=== PATIENT | female | born 1950 | race Caucasian/White ===

== ENCOUNTER 2016-08-05 11:47 | Emergency (ER) | payer MEDICARE, OTHER ==
[~2016-08-05] VITALS: Ht 157.5 cm; Wt 86.8 kg
[~2016-08-05 11:47] MED LIST: ACTO5TAB; AMOX875 PO; PRED20 PO; SIMV5TAB32 PO; [UNRECOGNIZED DRUG - CODE] PO
[2016-08-05 11:50] VITALS: BP 155/79; PULSE 67; RESP 16; TEMP 98.1; O2SAT 97
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
--- NOTE | 2016-08-05 12:37 | RADHPO ---
EXAM DATE/TIME: 08/05/2016 12:11 [facility] COMPARISON: No previous studies available for comparison. INDICATIONS : [place] the [place].. RADIATION DOSE: 61.49 CTDIvol (mGy) MEDICAL HISTORY : Hypercholesterolemia. SURGICAL HISTORY : None. ENCOUNTER: Initial ACUITY: 1 day PAIN SCALE: 7/10 LOCATION: cranial TECHNIQUE: Multiple contiguous axial images were obtained of the head. Using automated exposure control and adj ustment of the mA and/or kV according to patient size, radiation dose was kept as low as reasonably a chievable to obtain optimal diagnostic quality images. FINDINGS: CEREBRUM: The ventricles are normal for age. No evidence of midline shift, mass lesion, hemorrhage or acute in farction. No extra-axial fluid collections are seen. POSTERIOR FOSSA: The cerebellum and brainstem are intact. The 4th ventricle is midline. The cerebellopontine angle i s unremarkable. EXTRACRANIAL: The visualized portion of the orbits is intact. SKULL: The calvaria is intact. No evidence of skull fracture. CONCLUSION: No acute intracranial disease. Reji Wolff MD on August 05, 2016 at 12:33 Board Certified Radiologist. This report was verified electronically.
--- NOTE | 2016-08-05 12:46 | RADHPO ---
EXAM DATE/TIME: 08/05/2016 12:23 [facility] COMPARISON: No previous studies available for comparison. INDICATIONS : Neck pain after fall. MEDICAL HISTORY : None. SURGICAL HISTORY : None. ENCOUNTER: Initial ACUITY: 2 days PAIN SCORE: 9/10 LOCATION: Cervical spine FINDINGS: Alignment is normal. There is no evidence of fracture or destructive change. There is no abnormal pre vertebral swelling. There slight displaced narrowing at C5-6. Better preservation of disc height else where. CONCLUSION: No acute bony injury. Coy Miller MD on August 05, 2016 at 12:42 Board Certified Radiologist. This report was verified electronically.
[2016-08-05 13:34] VITALS: BP 147/69
== END 2016-08-05 13:35 | disposition home or self-care (01) ==
LOC: PHED 11:47
DX: F07.81 Postconcussional syndrome (principal); W20.8XXA Other cause of strike by thrown, projected or falling object, initial encounter; Y92.832 Beach as the place of occurrence of the external cause
CPT/HCPCS: 70450; 72040; 99284; L0150